=== PATIENT | female | born 1975 | race Two or more races ===

== ENCOUNTER 2016-09-06 01:09 | Emergency (ER) | payer MEDICAID ==
[~2016-09-06] VITALS: Ht 160 cm; Wt 79.4 kg
[2016-09-06 01:17] VITALS: BP 157/92
== END 2016-09-06 03:26 | disposition left against medical advice (07) ==
LOC: ER 01:13
DX: R05 Cough (principal); Z53.21 Procedure and treatment not carried out due to patient leaving prior to being seen by health care provider

== ENCOUNTER 2022-10-18 15:17 | Inpatient (IN) | payer MEDICAID ==
[~2022-10-18] VITALS: Ht 160 cm; Wt 76.6 kg
[~2022-10-18 15:17] MED LIST: FER325T PO
[2022-10-18 15:57] LABS: Basophils # (auto) 0.2 10 ^3/uL (0-0.2); Basophils % (auto) 4.4 % (0.0-2.0); Eosinophils # (auto) 0.1 10 ^3/uL (0-0.8); Eosinophils % (auto) 1.6 % (0.0-7.0); Hematocrit 16.7 % (36.0-46.0); Lymphocytes # (auto) 1.7 10 ^3/uL (0.4-5.4); Mean Corpuscular Hemoglobin 11.6 pg (28.0-32.0); Mean Corpuscular Hgb Conc. 24.1 g/dL (32.0-36.0); Mean Corpuscular Volume 48.2 fL (80.0-100.0); Monocytes # (auto) 0.3 10 ^3/uL (0-1.3); Monocytes % (auto) 7.5 % (0.0-12.0); Neutrophils # (auto) 1.8 10 ^3/uL (1.6-8.6); Neutrophils % (auto) 43.5 % (37.0-80.0); Nucleated Red Blood Cells % 0.8 %; Red Blood Cells 3.46 10^6/uL (4.0-5.20); White Blood Cell 4.1 10^3/uL (4.4-10.8)
[2022-10-18 15:59] LABS: Red Cell Distribution Width 24.3 % (11.8-14.3)
[2022-10-18 16:08] LABS: Albumin 3.5 g/dL (3.4-5.0); BUN/Creatinine Ratio 12.9; Calcium 8.8 mg/dL (8.5-10.1); Potassium 3.3 mmol/L (3.5-5.1)
[2022-10-18 16:11] LABS: Bilirubin, Total 0.5 mg/dL (0.2-1.0); Total Protein 7.4 g/dL (6.4-8.2)
[2022-10-18 16:12] LABS: INR 0.97 (0.9-1.15); Partial Thromboplastin Time 23.4 sec (24.6-33.4)
[2022-10-18] MEDS ORDERED: LACTATED RINGER'S 1,000 ML IV SCH (18:00)
[2022-10-18] MEDS ORDERED: POTASSIUM EFFERVESENT TAB 25 MEQ PO ONE (18:00)
[2022-10-18 18:47] LABS: Hematocrit 15.2 % (36.0-46.0)
[2022-10-18 18:58] LABS: Hemoglobin 3.9 g/dL (12.2-16.2)
[2022-10-18 19:01] LABS: % Iron Saturation 1.6 % (15-50)
[2022-10-18 19:03] LABS: Cholesterol 104 mg/dL (< 200); HDL Cholesterol 58 mg/dL (40-59); LDL Cholesterol 47 mg/dL (< 100); Triglycerides 86 mg/dL (< 150)
[2022-10-18 19:14] LABS: Ferritin 0.7 ng/mL (10-322)
[2022-10-18 19:15] LABS: Folate (Folic Acid) 8.31 ng/mL (5.38-24)
[2022-10-18 19:40] VITALS: BP 113/63
[2022-10-18 20:00] VITALS: BP 113/62
[2022-10-18 23:00] VITALS: BP 127/71
[2022-10-18 23:44] VITALS: BP 127/64
[2022-10-19] VITALS (21 sets, daily range): BP systolic 112–158; BP diastolic 58–88
[2022-10-19 06:43] LABS: Basophils # (auto) 0.2 10 ^3/uL (0-0.2); Eosinophils # (auto) 0.1 10 ^3/uL (0-0.8); Eosinophils % (auto) 2.3 % (0.0-7.0); Monocytes # (auto) 0.4 10 ^3/uL (0-1.3)
[2022-10-19 06:46] LABS: Basophils % (auto) 3.4 % (0.0-2.0); Hematocrit 19.9 % (36.0-46.0); Lymphocytes # (auto) 1.9 10 ^3/uL (0.4-5.4); Lymphocytes % (auto) 41.9 % (10.0-50.0); Mean Corpuscular Hemoglobin 15.6 pg (28.0-32.0); Mean Corpuscular Hgb Conc. 28.2 g/dL (32.0-36.0); Mean Corpuscular Volume 55.2 fL (80.0-100.0); Monocytes % (auto) 8.1 % (0.0-12.0); Neutrophils % (auto) 44.3 % (37.0-80.0); Nucleated Red Blood Cells % 0.3 %; White Blood Cell 4.5 10^3/uL (4.4-10.8)
[2022-10-19 07:16] LABS: Red Cell Distribution Width 37.1 % (11.8-14.3)
[2022-10-19 07:18] LABS: Hemoglobin 5.6 g/dL (12.2-16.2)
[2022-10-19 08:08] LABS: Anion Gap 7 (5-15); Carbon Dioxide 24 mmol/L (21-32); Chloride 108 mmol/L (98-107); Potassium 3.7 mmol/L (3.5-5.1); Sodium 139 mmol/L (136-145)
[2022-10-19 08:09] LABS: Blood Urea Nitrogen 11 mg/dL (7-18); Glucose 101 mg/dL (74-106)
[2022-10-19] MEDS: FERROUS SULFATE 325mg EC TAB PO SCH ×2 (08:13→18:01)
[2022-10-19 08:14] LABS: Alanine Aminotransferase 9 U/L (13-56); Alkaline Phosphatase 53 U/L (45-117); Aspartate Aminotransferase 8 U/L (15-37); BUN/Creatinine Ratio 15.5; Bilirubin, Total 1.3 mg/dL (0.2-1.0); Calcium 8.1 mg/dL (8.5-10.1); GFR African American 113 mL/min; GFR Non-African American 93 mL/min
[2022-10-19 08:15] LABS: Albumin 3.1 g/dL (3.4-5.0); Total Protein 6.3 g/dL (6.4-8.2)
[2022-10-19] MEDS ORDERED: medroxyPROGESTERone ACETATE 5 MG TAB PO SCH (10:00)
[2022-10-19] MEDS ORDERED: PANTOPRAZOLE 40 MG/10 ML VIAL INJ IV SCH (10:00)
[2022-10-19] MEDS ORDERED: MEDR10TA9 PO (16:08)
[2022-10-19] MEDS ORDERED: FER325T PO (16:08)
[2022-10-19 19:38] LABS: Hematocrit 24.8 % (36.0-46.0); Hemoglobin 7.1 g/dL (12.2-16.2); Mean Corpuscular Hemoglobin 17.2 pg (28.0-32.0); Mean Corpuscular Hgb Conc. 28.6 g/dL (32.0-36.0); Mean Corpuscular Volume 60.1 fL (80.0-100.0); Red Blood Cells 4.12 10^6/uL (4.0-5.20); White Blood Cell 6.3 10^3/uL (4.4-10.8)
[2022-10-19 19:39] LABS: Red Cell Distribution Width 40.9 % (11.8-14.3)
[2022-10-19 19:41] LABS: Band Neutrophils % (manual) 0; Basophils % (manual) 0 (0.0-2.0); Blast Cells 0; Metamyelocytes % 0; Myelocytes % 0; Promyelocytes % 0; Reactive Lymphocytes 0
[2022-10-19 19:47] LABS: Lymphocytes % (manual) 38 (10.0-50.0); Monocytes % (manual) 10 (0-12)
[2022-10-19 19:48] LABS: Eosinophils % (manual) 2 (0-7)
== END 2022-10-19 20:41 | disposition home or self-care (01) | DRG 663 ==
LOC: ER 15:17 → TELE 17:58 → DOU IN ICU 10-19 05:44
PROVIDERS: ADMIT Registered Nurse; ATTEND Student in an Organized Health Care Education/Training Program
PROC: 30233N1 Transfusion of Nonautologous Red Blood Cells into Peripheral Vein, Percutaneous Approach (ICD-10-PCS; principal; 2022-10-18)
DX: D50.0 Iron deficiency anemia secondary to blood loss (chronic) (principal); D25.9 Leiomyoma of uterus, unspecified; E87.6 Hypokalemia; Z20.822 Contact with and (suspected) exposure to COVID-19; Z82.49 Family history of ischemic heart disease and other diseases of the circulatory system; Z83.3 Family history of diabetes mellitus; Z90.721 Acquired absence of ovaries, unilateral; Z90.49 Acquired absence of other specified parts of digestive tract; Z98.51 Tubal ligation status
CPT/HCPCS: 36415; 76856; 80053; 80061; 82607; 82728; 82746; 83036; 83540; 83550; 83615; 83735; 84443; 85007; 85014; 85018; 85025; 85027; 85045; 85049; 85384; 85610; 85730; 86850; 86900; 86901; 86920; 87081; 87426; C9113; G0378

== ENCOUNTER 2022-11-04 16:51 | Inpatient (IN) | payer MEDICAID ==
[~2022-11-04] VITALS: Ht 162.6 cm; Wt 77.6 kg
[~2022-11-04 16:51] MED LIST changes: +MEDR10TA9 PO
[2022-11-04 18:04] LABS: Basophils # (auto) 0.1 10 ^3/uL (0-0.2); Basophils % (auto) 2.6 % (0.0-2.0); Eosinophils # (auto) 0.1 10 ^3/uL (0-0.8); Hemoglobin 8.2 g/dL (12.2-16.2); Lymphocytes # (auto) 1.5 10 ^3/uL (0.4-5.4); Monocytes # (auto) 0.4 10 ^3/uL (0-1.3); Monocytes % (auto) 7.6 % (0.0-12.0); Nucleated Red Blood Cells % 0.1 %
[2022-11-04 18:07] LABS: Eosinophils % (auto) 1.7 % (0.0-7.0); Hematocrit 29.2 % (36.0-46.0); Lymphocytes % (auto) 27.1 % (10.0-50.0); Mean Corpuscular Hemoglobin 17.8 pg (28.0-32.0); Mean Corpuscular Hgb Conc. 28.1 g/dL (32.0-36.0); Mean Corpuscular Volume 63.1 fL (80.0-100.0); Neutrophils # (auto) 3.4 10 ^3/uL (1.6-8.6); Red Blood Cells 4.62 10^6/uL (4.0-5.20); White Blood Cell 5.5 10^3/uL (4.4-10.8)
[2022-11-04 18:12] LABS: Red Cell Distribution Width 39.2 % (11.8-14.3)
[2022-11-04 18:20] LABS: INR 0.98 (0.9-1.15); Partial Thromboplastin Time 25.8 sec (24.6-33.4)
[2022-11-04 18:28] LABS: Albumin 3.3 g/dL (3.4-5.0); BUN/Creatinine Ratio 10.9; Bilirubin, Total 0.4 mg/dL (0.2-1.0); Potassium 3.6 mmol/L (3.5-5.1)
[2022-11-04] MEDS ORDERED: HYDROcodone-ACET 5/325MG TAB PO PRN (22:30)
[2022-11-04] MEDS ORDERED: ACETAMINOPHEN 325 MG TAB PO PRN (22:30)
[2022-11-04] MEDS ORDERED: ONDANSETRON HCL 4 MG/2 ML VIAL IV PRN (22:30)
[2022-11-04] MEDS ORDERED: DOCUSATE SOD 100 MG CAP PO PRN (22:30)
[2022-11-04] MEDS ORDERED: SODIUM CHLORIDE 0.9% 1,000 ML IV SCH (22:30)
[2022-11-04 22:40] VITALS: BP 142/79
[2022-11-04] MEDS ORDERED: NITROGLYCERIN 0.4 MG SL TAB SL PRN (23:30)
[2022-11-04] MEDS ORDERED: MORPHINE SULFATE INJ 2 MG/ml SYRG IV PRN (23:30)
[2022-11-05] MEDS ORDERED: MULTIPLE VITAMIN TAB PO SCH (10:00)
== END 2022-11-05 02:30 | disposition home or self-care (01) | DRG 532 ==
LOC: ER 16:51 → OVERFLOW 23:17
PROVIDERS: ADMIT Nurse Practitioner Family; ATTEND Obstetrics & Gynecology
DX: N93.8 Other specified abnormal uterine and vaginal bleeding (principal); E88.09 Other disorders of plasma-protein metabolism, not elsewhere classified; Z20.822 Contact with and (suspected) exposure to COVID-19; D64.9 Anemia, unspecified; Z80.9 Family history of malignant neoplasm, unspecified; Z82.49 Family history of ischemic heart disease and other diseases of the circulatory system; Z83.3 Family history of diabetes mellitus
CPT/HCPCS: 36415; 80053; 84702; 85025; 85610; 85730; 86850; 86900; 86901; 87426; G0378

== ENCOUNTER 2022-11-05 18:49 | Inpatient (IN) | payer MEDICAID ==
[~2022-11-05] VITALS: Ht 160 cm; Wt 81.9 kg
[2022-11-05 21:31] LABS: Albumin 3.3 g/dL (3.4-5.0); Calcium 8.1 mg/dL (8.5-10.1); Potassium 3.4 mmol/L (3.5-5.1)
[2022-11-05 21:34] LABS: BUN/Creatinine Ratio 16.1; Bilirubin, Total 0.4 mg/dL (0.2-1.0)
[2022-11-05 22:45] LABS: Basophils # (auto) 0.1 10 ^3/uL (0-0.2); Eosinophils # (auto) 0.1 10 ^3/uL (0-0.8); Hematocrit 29.6 % (36.0-46.0); Monocytes # (auto) 0.6 10 ^3/uL (0-1.3); Neutrophils # (auto) 4.4 10 ^3/uL (1.6-8.6)
[2022-11-05 22:47] LABS: Basophils % (auto) 1.8 % (0.0-2.0); Eosinophils % (auto) 1.5 % (0.0-7.0); Hemoglobin 8.4 g/dL (12.2-16.2); Lymphocytes # (auto) 2.2 10 ^3/uL (0.4-5.4); Lymphocytes % (auto) 29.6 % (10.0-50.0); Mean Corpuscular Hgb Conc. 28.3 g/dL (32.0-36.0); Mean Corpuscular Volume 63.6 fL (80.0-100.0); Monocytes % (auto) 8.1 % (0.0-12.0); Nucleated Red Blood Cells % 0.2 %; Red Blood Cells 4.65 10^6/uL (4.0-5.20); White Blood Cell 7.5 10^3/uL (4.4-10.8)
[2022-11-05] MEDS ORDERED: DOCUSATE SOD 100 MG CAP PO PRN (23:30)
[2022-11-05] MEDS ORDERED: NITROGLYCERIN 0.4 MG SL TAB SL PRN (23:30)
[2022-11-05] MEDS ORDERED: AZITHROMYCIN 500MG/ 250ML 250 ML IV ONE (23:30)
[2022-11-05] MEDS ORDERED: HYDROcodone-ACET 5/325MG TAB PO PRN (23:30)
[2022-11-05] MEDS ORDERED: MORPHINE SULFATE INJ 2 MG/ml SYRG IV PRN (23:30)
[2022-11-05] MEDS ORDERED: ACETAMINOPHEN 325 MG TAB PO PRN (23:30)
[2022-11-05] MEDS ORDERED: ONDANSETRON HCL 4 MG/2 ML VIAL IV PRN (23:30)
[2022-11-06] MEDS: D5W/SOD CHL 0.45% 1,000 ML IV SCH ×2 (01:08→19:30)
[2022-11-06 04:44] LABS: Basophils # (auto) 0.2 10 ^3/uL (0-0.2); Eosinophils # (auto) 0.2 10 ^3/uL (0-0.8); Nucleated Red Blood Cells % 0.1 %
[2022-11-06 04:46] LABS: Basophils % (auto) 2.4 % (0.0-2.0); Eosinophils % (auto) 3.1 % (0.0-7.0); Hematocrit 28.7 % (36.0-46.0); Hemoglobin 8.1 g/dL (12.2-16.2); Lymphocytes # (auto) 2.2 10 ^3/uL (0.4-5.4); Lymphocytes % (auto) 27.5 % (10.0-50.0); Mean Corpuscular Hgb Conc. 28.3 g/dL (32.0-36.0); Mean Corpuscular Volume 63.6 fL (80.0-100.0); Monocytes # (auto) 0.8 10 ^3/uL (0-1.3); Monocytes % (auto) 9.7 % (0.0-12.0); Neutrophils # (auto) 4.5 10 ^3/uL (1.6-8.6); Neutrophils % (auto) 57.3 % (37.0-80.0); Red Blood Cells 4.52 10^6/uL (4.0-5.20); White Blood Cell 7.9 10^3/uL (4.4-10.8)
[2022-11-06 04:47] LABS: Red Cell Distribution Width 39.4 % (11.8-14.3)
[2022-11-06 05:00] LABS: Albumin 3.2 g/dL (3.4-5.0); Calcium 8.1 mg/dL (8.5-10.1); Potassium 3.7 mmol/L (3.5-5.1)
[2022-11-06 05:04] LABS: Bilirubin, Total 0.4 mg/dL (0.2-1.0); Total Protein 7.4 g/dL (6.4-8.2)
[2022-11-06] MEDS: FAMOTIDINE (10MG/ML) 2ML VL IV SCH (11:07)
[2022-11-06] MEDS: MULTIPLE VITAMIN TAB PO SCH (11:07)
[2022-11-06] MEDS: AZITHROMYCIN 500MG/ 250ML 250 ML IV SCH (11:08)
[2022-11-06 15:52] LABS: Urine Bacteria NONE SEEN /hpf (None Seen); Urine Blood 3+ /uL (Negative); Urine Hyaline Cast FEW /lpf (0 - 2); Urine Mucus FEW (None Seen); Urine Specific Gravity 1.011 (1.001-1.035); Urine WBC 34 /hpf (0 - 5)
[2022-11-06 16:42] VITALS: BP 117/68
[2022-11-06 22:00] VITALS: BP 139/79
[2022-11-07 05:00] VITALS: BP 128/66
[2022-11-07] MEDS: D5W/SOD CHL 0.45% 1,000 ML IV SCH (06:13)
[2022-11-07 10:00] VITALS: BP_SYST 131; BP_SYST 144; BP_DIAS 76; BP_DIAS 81
[2022-11-07] MEDS: FAMOTIDINE (10MG/ML) 2ML VL IV SCH (10:49)
[2022-11-07] MEDS: MULTIPLE VITAMIN TAB PO SCH (10:49)
[2022-11-07] MEDS: AZITHROMYCIN 500MG/ 250ML 250 ML IV SCH (10:50)
[2022-11-07 17:00] VITALS: BP 116/65
[2022-11-07 17:30] VITALS: BP 144/81
== END 2022-11-07 18:53 | disposition home or self-care (01) | DRG 532 ==
LOC: ER 18:49 → TELE 23:34 → TELE-WESTW 11-06 16:44
PROVIDERS: ADMIT Nurse Practitioner Family; ATTEND Internal Medicine
DX: D25.9 Leiomyoma of uterus, unspecified (principal); E88.09 Other disorders of plasma-protein metabolism, not elsewhere classified; J18.9 Pneumonia, unspecified organism; N92.0 Excessive and frequent menstruation with regular cycle; D50.0 Iron deficiency anemia secondary to blood loss (chronic); E87.6 Hypokalemia; N93.8 Other specified abnormal uterine and vaginal bleeding; Z80.9 Family history of malignant neoplasm, unspecified; Z82.49 Family history of ischemic heart disease and other diseases of the circulatory system; Z83.3 Family history of diabetes mellitus; Z90.49 Acquired absence of other specified parts of digestive tract; Z20.822 Contact with and (suspected) exposure to COVID-19
CPT/HCPCS: 36415; 71045; 71046; 80053; 81001; 83880; 85025; 86850; 86900; 86901; 87081; 87426; 96365; 96366; G0378; J3490